=== PATIENT | male | born 1955 | race Caucasian/White ===

== ENCOUNTER 2016-04-05 10:23 | Observation (INO) | payer OTHER ==
[~2016-04-05] VITALS: Ht 165.1 cm; Wt 93.9 kg
[2016-04-05] VITALS (21 sets, daily range): BP systolic 90–148; RESP 18–20; TEMP 97.8–98.5; Ht 165.1 cm; Wt 93.9 kg
[2016-04-05] MEDS ORDERED: TEMAZEPAM 15 MG CAP PO PRN (12:15)
[2016-04-05] MEDS ORDERED: NITROGLYCERIN SL 0.4 MG TAB SL PRN (12:15)
[2016-04-05] MEDS ORDERED: NITROGLYCERIN 50 MG/250 ML IV PRN (12:15)
[2016-04-05] MEDS ORDERED: MORPHINE 2 MG/ML SYR IV PRN (12:15)
[2016-04-05] MEDS ORDERED: ONDANSETRON 4 MG VIAL IV PRN (12:15)
[2016-04-05] MEDS ORDERED: SALINE FLUSH 10 ML FLUSH PRN (12:15)
[2016-04-05] MEDS ORDERED: SODIUM CHLORIDE 0.9% FLUSH BAG 500 ML IV PRN (12:15)
[2016-04-05] MEDS ORDERED: DOCUSATE SOD 100 MG CAP PO PRN (12:15)
[2016-04-05] MEDS ORDERED: LORAZEPAM 0.5 MG TAB PO PRN (12:15)
[2016-04-05] MEDS ORDERED: TRAMADOL 50 MG TAB PO PRN (12:15)
[2016-04-05] MEDS ORDERED: SODIUM CHLORIDE 0.9% 1,000 ML IV SCH (12:15)
[2016-04-05] MEDS ORDERED: DILTIAZEM IV PUSH ONE (12:20)
[2016-04-05] MEDS ORDERED: ACETAMINOPHEN 325 MG TAB PO PRN (12:20)
[2016-04-05] MEDS: CARDIZEM 1 MG/ML DRIP 125 ML IV SCH (12:40)
[2016-04-05] MEDS ORDERED: ACETAMINOPHEN 500 MG TAB PO PRN (15:25)
[2016-04-05] MEDS: CLOPIDOGREL 75 MG TAB PO SCH (17:37)
[2016-04-05] MEDS: Furosemide 40 MG/4 ML VIAL IV SCH (17:37)
[2016-04-05] MEDS: METFORMIN 500 MG TAB PO SCH ×2 (17:37→22:06)
[2016-04-05] MEDS: SALINE FLUSH 10 ML FLUSH SCH (20:00)
[2016-04-05] MEDS: APIXABAN 5 MG TAB PO SCH (22:06)
[2016-04-05] MEDS: glipiZIDE 10 MG TAB PO SCH (22:07)
[2016-04-05] MEDS: METOPROLOL TART 100 MG TAB PO SCH (22:07)
[2016-04-05] MEDS ORDERED: MISSING DOSE XX ONE (22:25)
[2016-04-05] MEDS ORDERED: CARDIZEM 1 MG/ML DRIP 125 ML IV SCH (22:25)
[2016-04-06] VITALS (11 sets, daily range): BP systolic 90–134; RESP 18; TEMP 97.6–98.6
[2016-04-06] MEDS: CARDIZEM 1 MG/ML DRIP 125 ML IV SCH (01:25)
[2016-04-06] MEDS ORDERED: ASPIRIN EC 81 MG TAB PO SCH (08:00)
[2016-04-06] MEDS: METFORMIN 500 MG TAB PO SCH (08:48)
[2016-04-06] MEDS: Furosemide 40 MG/4 ML VIAL IV SCH (08:48)
[2016-04-06] MEDS: CLOPIDOGREL 75 MG TAB PO SCH (08:48)
[2016-04-06] MEDS: glipiZIDE 10 MG TAB PO SCH (08:48)
[2016-04-06] MEDS: SALINE FLUSH 10 ML FLUSH SCH (08:48)
[2016-04-06] MEDS: APIXABAN 5 MG TAB PO SCH (08:48)
[2016-04-06] MEDS: METOPROLOL TART 100 MG TAB PO SCH (08:48)
[2016-04-07] MEDS ORDERED: Furosemide 20 MG TAB PO SCH (09:00)
== END 2016-04-06 13:13 | disposition home or self-care (01) ==
LOC: PCU2 11:05 → ENPENDDIS 11:05
PROVIDERS: ADMIT Internal Medicine Cardiovascular Disease; ATTEND Internal Medicine Cardiovascular Disease
DX: I48.91 Unspecified atrial fibrillation (principal); E11.9 Type 2 diabetes mellitus without complications; I10 Essential (primary) hypertension; E78.5 Hyperlipidemia, unspecified; Z86.73 Personal history of transient ischemic attack (TIA), and cerebral infarction without residual deficits; F17.210 Nicotine dependence, cigarettes, uncomplicated; Z79.01 Long term (current) use of anticoagulants; Z79.02 Long term (current) use of antithrombotics/antiplatelets; Z79.84 Long term (current) use of oral hypoglycemic drugs; E87.70 Fluid overload, unspecified
CPT/HCPCS: 71010; 80053; 80061; 82550; 82947; 83735; 84484; 85025; 85610; 85730; 93005; 96374; 96375; 96376; G0378; 94799